=== PATIENT | male | born 1950 | race Caucasian/White ===

== ENCOUNTER → 2016-06-25 | Outpatient (CLI) | payer BC ==
[~2016-06-25] MED LIST: CHOL1000 PO; CMD5 PO; DIME1CAP2 PO
[2016-06-25 09:37] LABS: BASO % 0.2 %; BASO ABS # 0.01 K/uL (0-0.2); COMPLETE YES; EOS % 1.9 %; HEMATOCRIT 42.2 % (42-52); IG% 0.4 %; LYMPH % 21.4 %; MEAN CELL VOLUME 87.9 fL (80-100); MEAN CORPUSCULAR HGB CONC 35.3 g/dl (32-36); MEAN PLATELET VOLUME 11.6 fL (7.4-10.4); MONO % 17.8 %; NEUT % 58.3 %; PLATELET COUNT 127 K/uL (130-400); WHITE BLOOD COUNT 4.67 K/uL (4.8-10.8)
[2016-06-25 09:55] LABS: ALT/SGPT 23 U/L (12-78); BLOOD UREA NITROGEN 11 mg/dl (7-18); BUN/CREATININE RATIO 12.9 (10-20); CALCIUM 9.4 mg/dl (8.5-10.1); CARBON DIOXIDE 27 mmol/L (21-32); CHLORIDE 101 mmol/L (98-107); CREATININE 0.82 mg/dl (0.60-1.40); GLUCOSE 91 mg/dl (70-99); POTASSIUM 4.2 mmol/L (3.5-5.1); SODIUM 134 mmol/L (136-145)
[2016-06-25 09:59] LABS: ALB/GLOB RATIO 1.2 (0.9-2); ALKALINE PHOSPHATASE 104 U/L (45-117); AST/SGOT 22 U/L (15-37)
== END | disposition home or self-care (01) ==
LOC: C.LAB1850 07:07
PROVIDERS: ATTEND Family Medicine
DX: G35 Multiple sclerosis (principal); E55.9 Vitamin D deficiency, unspecified; Z85.46 Personal history of malignant neoplasm of prostate; Z95.2 Presence of prosthetic heart valve

== ENCOUNTER → 2016-10-22 | Outpatient (CLI) | payer BC ==
[2016-10-22 09:34] LABS: BASO % 0.2 %; BASO ABS # 0.01 K/uL (0-0.2); COMPLETE YES; EOS % 3.1 %; HEMATOCRIT 42.5 % (42-52); IG% 0.4 %; LYMPH % 20.6 %; LYMPH ABS # 0.92 K/uL (1.2-3.4); MEAN CELL VOLUME 89.7 fL (80-100); MEAN CORPUSCULAR HEMOGLOBIN 31.9 pg (25-34); MEAN CORPUSCULAR HGB CONC 35.5 g/dl (32-36); MEAN PLATELET VOLUME 11.8 fL (7.4-10.4); MONO % 14.1 %; NEUT % 61.6 %; PLATELET COUNT 143 K/uL (130-400); RED BLOOD COUNT 4.74 M/uL (4.7-6.1); WHITE BLOOD COUNT 4.46 K/uL (4.8-10.8)
[2016-10-22 09:53] LABS: ALT/SGPT 24 U/L (12-78); BLOOD UREA NITROGEN 10 mg/dl (7-18); BUN/CREATININE RATIO 10.8 (10-20); CALCIUM 9.3 mg/dl (8.5-10.1); CARBON DIOXIDE 27 mmol/L (21-32); CHLORIDE 99 mmol/L (98-107); CREATININE 0.88 mg/dl (0.60-1.40); GLUCOSE 106 mg/dl (70-99); POTASSIUM 4.4 mmol/L (3.5-5.1); SODIUM 133 mmol/L (136-145)
[2016-10-22 10:03] LABS: ALB/GLOB RATIO 1.3 (0.9-2); ALKALINE PHOSPHATASE 91 U/L (45-117); AST/SGOT 17 U/L (15-37)
[2016-10-29 23:51] LABS: JCV ANTIBODY POSITIVE; JCV INDEX 1.07
== END | disposition home or self-care (01) ==
LOC: C.LAB1850 07:16
PROVIDERS: ATTEND Psychiatry & Neurology Neurology
DX: G35 Multiple sclerosis (principal); E55.9 Vitamin D deficiency, unspecified; F32.9 Major depressive disorder, single episode, unspecified; R19.4 Change in bowel habit

== ENCOUNTER → 2016-10-28 | Outpatient (CLI) | payer BC ==
[~2016-10-28] MED LIST changes: +GADAVIST IV PRN
--- NOTE | 2016-10-28 13:14 | DIAGNOSTIC IMAGING REPORT ---
THORACIC SPINE MRI WITH AND WITHOUT CONTRAST HISTORY: FECAL INCONTINENCE, MS, SPASTIC GAIT TECHNIQUE: Multiplanar multisequence MRI of the thoracic spine was performed both before and after the intravenous administration of contrast. COMPARISON: None. FINDINGS: Alignment and curvature are intact. No acute fracture or subluxation. No significant central canal or neural foraminal narrowing. Disc spaces are relatively preserved for age. Minimal anterior wedging within the T6 vertebral body is chronic. No disc herniations. A few tiny Schmorl's nodes. The thoracic spinal cord is normal in course, caliber, and signal intensity. No abnormal enhancement within the spinal cord. IMPRESSION: Normal thoracic spinal cord. Electronically signed by: Ran Olivas M.D. 10/28/2016 1:13 PM Dictated Date/Time: 10/28/2016 1:06 PM
--- NOTE | 2016-10-28 13:15 | DIAGNOSTIC IMAGING REPORT ---
BRAIN COMBO CLINICAL HISTORY: FECAL INCONTINENCE, MS, SPASTIC GAIT mental status change COMPARISON STUDY: 09/14/2014 TECHNIQUE: Utilizing a 1.5 Janiya magnet and dedicated coil, multiplanar, multiecho imaging of the brain was performed pre and postcontrast administration. IV administration of 8.5 mL of Gadavist contrast was uneventful. FINDINGS: Diffusion-weighted images are considered negative for an acute ischemic event. FLAIR images demonstrate multiple foci of increased signal within the periventricular deep white matter regions. These have generally remains stable. There are new or slightly progressive foci of increased signal within the central right temporal lobe as well as in the medial left temporal lobe. All remaining components appear unchanged. Ventricular system is midline. Postcontrast enhanced exam shows no evidence for abnormal postcontrast enhancement. IMPRESSION: 1. Multiple foci of increased signal within the periventricular and deep white matter regions consistent with that of a demyelinating disorder. 2. 2 new foci of increased signal within the temporal lobes bilaterally. 3. Study otherwise remain stable with no abnormal postcontrast enhancement The above report was generated using voice recognition software. It may contain grammatical, syntax or spelling errors. Electronically signed by: Geoffrey Salinas M.D. 10/28/2016 1:13 PM Dictated Date/Time: 10/28/2016 1:07 PM
--- NOTE | 2016-10-28 13:19 | DIAGNOSTIC IMAGING REPORT ---
CERVICAL SPINE MRI WITH AND WITHOUT CONTRAST HISTORY: FECAL INCONTINENCE, MS, SPASTIC GAIT TECHNIQUE: Multiplanar multisequence MRI of the cervical spine was performed both before and after the use of intravenous contrast. COMPARISON STUDY: Cervical spine MRI 09/14/2014. FINDINGS: Alignment and curvature are intact. No fracture or subluxation. Prevertebral soft tissues and the C1-C2 interval are well-maintained. The cervical spinal cord is normal in course, caliber, and signal intensity. No abnormal enhancement. No disc herniations. Moderate facet degenerative changes at C2-C3. C2-C3: No significant central canal or neural foraminal narrowing. C3-C4: No central canal narrowing. Mild bilateral neural foraminal narrowing. C4-C5: No central canal narrowing. Mild to moderate bilateral neural foraminal narrowing. C5-C6: No central canal narrowing. Mild to moderate bilateral neural foraminal narrowing. C6-C7: No significant central canal or neural foraminal narrowing. C7-T1: No significant central canal or neural foraminal narrowing. IMPRESSION: Normal cervical spinal cord. No abnormal enhancement. Electronically signed by: Ran Olivas M.D. 10/28/2016 1:18 PM Dictated Date/Time: 10/28/2016 1:13 PM
== END | disposition home or self-care (01) ==
LOC: C.MRIBC 10:41
PROVIDERS: ATTEND Psychiatry & Neurology Neurology
DX: K59.00 Constipation, unspecified (principal); G35 Multiple sclerosis; R26.1 Paralytic gait

== ENCOUNTER → 2017-03-26 | Outpatient (CLI) | payer BC ==
[~2017-03-26] MED LIST changes: -GADAVIST IV PRN
--- NOTE | 2017-03-26 10:34 | DIAGNOSTIC IMAGING REPORT ---
L RIBS UNILATERAL WITH PA CHEST CLINICAL HISTORY: RIB PAIN ON LEFT SIDE COMPARISON STUDY: Chest 02/04/2016. FINDINGS: No pneumothorax. No pleural effusions. Linear densities the left lung base favor scarring or atelectasis. This is similar to the prior study. Mild diffuse interstitial thickening which is also likely chronic. No new focal lung consolidations. Poststernotomy changes. The heart is stable in size. Mild deformity within the left lateral sixth through ninth ribs. These appear to represent old, healed fractures. No definite acute fractures identified. There is mild pleural thickening within the left lateral lung base which is likely reactive to the old healed fractures. Aortic valve prosthesis. IMPRESSION: Old, healed left lateral sixth through ninth rib fractures. No definite acute fractures identified. No pneumothorax. Electronically signed by: Ran Olivas M.D. 03/26/2017 10:33 AM Dictated Date/Time: 03/26/2017 10:28 AM
== END | disposition home or self-care (01) ==
LOC: C.RAD1850 10:11
PROVIDERS: ATTEND Nurse Practitioner Family
DX: R07.81 Pleurodynia (principal); Z87.81 Personal history of (healed) traumatic fracture

== ENCOUNTER → 2017-05-13 | Outpatient (CLI) | payer OTHER ==
[2017-05-13 09:31] LABS: BASO % 0.5 %; BASO ABS # 0.03 K/uL (0-0.2); EOS % 2.1 %; EOS ABS # 0.12 K/uL (0-0.5); HEMATOCRIT 42.1 % (42-52); HEMOGLOBIN 14.9 g/dL (14.0-18.0); IG# 0.03 K/uL (0.00-0.02); LYMPH % 16.7 %; LYMPH ABS # 0.95 K/uL (1.2-3.4); MEAN CELL VOLUME 90.1 fL (80-100); MEAN CORPUSCULAR HEMOGLOBIN 31.9 pg (25-34); MEAN CORPUSCULAR HGB CONC 35.4 g/dl (32-36); MEAN PLATELET VOLUME 11.8 fL (7.4-10.4); MONO % 14.9 %; MONO ABS # 0.85 K/uL (0.11-0.59); NEUT % 65.3 %; NEUT ABS # 3.71 K/uL (1.4-6.5); PLATELET COUNT 148 K/uL (130-400); RED CELL DISTRIBUTION WIDTH CV 13.5 % (11.5-14.5); RED CELL DISTRIBUTION WIDTH SD 44.2 fL (36.4-46.3); WHITE BLOOD COUNT 5.69 K/uL (4.8-10.8)
[2017-05-13 09:42] LABS: ALBUMIN 4.1 gm/dl (3.4-5.0); ALT/SGPT 22 U/L (12-78); AST/SGOT 19 U/L (15-37); BLOOD UREA NITROGEN 13 mg/dl (7-18); CARBON DIOXIDE 24 mmol/L (21-32); CREATININE 0.83 mg/dl (0.60-1.40); GLUCOSE 109 mg/dl (70-99); SODIUM 131 mmol/L (136-145)
[2017-05-13 09:53] LABS: ALKALINE PHOSPHATASE 134 U/L (45-117); CHOLESTEROL 131 mg/dl (0-200); LDL CHOLESTEROL CALCULATED 56 mg/dl; TOTAL PROTEIN 7.6 gm/dl (6.4-8.2)
== END | disposition home or self-care (01) ==
LOC: C.LAB1850 07:17
PROVIDERS: ATTEND Psychiatry & Neurology Neurology
DX: Z13.220 Encounter for screening for lipoid disorders (principal); G35 Multiple sclerosis; E55.9 Vitamin D deficiency, unspecified